=== PATIENT | female | born 1990 | race Caucasian/White ===

== ENCOUNTER → 2016-12-29 | Outpatient (CLI) | payer BC ==
--- NOTE | 2016-12-29 10:41 | US ---
EXAMINATION TYPE: US OB <=14 wks transvag DATE OF EXAM: 12/29/2016 10:11 AM COMPARISON: NONE CLINICAL HISTORY: 046.91 1st Trimester spotting. Cramping, 1 episode of spotting EXAM PERFORMED: Transvaginal (TV) and Transabdominal (TA) EXAM MEASUREMENTS: GESTATIONAL AGE / DATING Physician Established: not established Dates by LMP: (8 weeks/4 days) EDC: 08/06/17 Dates by First Scan: no prior exam Dates by Current Scan for: ( 5 weeks/5 days) (gestational sac) MATERNAL ANATOMY Uterus: 9.8 x 5.7 x 5.2cm Right Ovary: 2.9 x 2.1 x 1.7cm Left Ovary: 3.4 x 2.8 x 3.1cm Post CDS / Adnexa: Small amount of free fluid adjacent to right ovary Presence of free fluid: yes Presence of subchorionic bleed: yes, adjacent to gestational sac = 1.4cm GESTATION / SURVEY MSD: 1.1cm (5 weeks/5 days) Yolk Sac (normal less than 6mm): 0.2cm IUP: no evidence of pole at this time Date of LMP: 10/30/16 Beta HcG (if available): unavailable TECHNOLOGIST IMPRESSION: Probable gestational sac with yolk sac identified within uterus, no evidenc e of pole at this time. Small subchorionic bleed adjacent to gestational sac. Small amount of f ree fluid adjacent to right ovary IMPRESSION: Probable early intrauterine gestation with associated subchorionic bleed. No yolk sac or pole i s seen this time. Short-term follow-up +/- elevated hCGs would be suggested.
== END | disposition home or self-care (01) ==
LOC: RADUSWWP 09:26
PROVIDERS: ATTEND Obstetrics & Gynecology
DX: O46.91 Antepartum hemorrhage, unspecified, first trimester (principal); Z3A.01 Less than 8 weeks gestation of pregnancy
CPT/HCPCS: 76801; 76817; 84702

== ENCOUNTER → 2016-12-31 | Outpatient (CLI) | payer BC | END | disposition home or self-care (01) | LOC: LABWHC1 09:41 | PROVIDERS: ATTEND Obstetrics & Gynecology | DX: Z34.92 Encounter for supervision of normal pregnancy, unspecified, second trimester (principal); Z3A.00 Weeks of gestation of pregnancy not specified | CPT/HCPCS: 36415; 84702 ==

== ENCOUNTER → 2017-01-12 | Outpatient (CLI) | payer BC ==
--- NOTE | 2017-01-12 08:40 | US ---
EXAMINATION TYPE: US OB <= 14 wk fetus DATE OF EXAM: 01/12/2017 7:32 AM COMPARISON: prior scan in PACS December 29, 2016. CLINICAL HISTORY: F/U to abnormal US Z36. on previous scan only gest sac seen EXAM PERFORMED: Transvaginal (TV) and Transabdominal (TA) pelvic ultrasound. EXAM MEASUREMENTS: GESTATIONAL AGE / DATING Physician Established: not established yet Dates by LMP: uncertain lmp Dates by First Scan: no pole seen on first scan Dates by Current Scan for: viable iup not confirmed at this scan MATERNAL ANATOMY Uterus: 8.9 x 6.3 x 7.5cm retroverted uterus with a 1.7 x 1.2 x 0.9cm subchorionic bleed Right Ovary: 2.8 x 1.8 x 2.0cm Left Ovary: 3.3 x 2.3 x 2.6cm Post CDS / Adnexa: wnl Presence of free fluid: none seen GESTATION / SURVEY CRL: 0.6cm (6 weeks/2 days) MSD: wnl Yolk Sac (normal less than 6mm): 3mm Heart Rate: cardiac activity not seen TECHNOLOGIST IMPRESSION: from prior scan pt states rising betas. 6w2d pole seen but with no c ardiac activity. Small subchorionic bleed. Results called to office and left on machine as office not open yet. Intrauterine gestation is now present as gestational sac, yolk sac, and pole are confirmed. Fet al heart tones cannot be detected despite several attempts. No free fluid is seen in pelvic cul-de-sa c. Superior to gestational sac there is oval fluid collection measuring 1.7 x 0.8 cm felt to reflect small to moderate-sized subchorionic hemorrhage. Both ovaries are identified. No suspicious solid or cystic adnexal mass is seen. IMPRESSION: Intrauterine gestation is confirmed. heart tones are not detected probably due to small size. S mall to moderate-sized subchorionic hemorrhage is noted. Short-term beta-hCG and ultrasound follow-up is advised.
== END | disposition home or self-care (01) ==
LOC: RADUSWWP 07:03
PROVIDERS: ATTEND Obstetrics & Gynecology
DX: O20.8 Other hemorrhage in early pregnancy (principal); Z3A.01 Less than 8 weeks gestation of pregnancy
CPT/HCPCS: 76801; 76817

== ENCOUNTER → 2017-01-19 | Outpatient (CLI) | payer BC ==
--- NOTE | 2017-01-19 11:16 | US ---
EXAMINATION TYPE: US OB <= 14 wk fetus DATE OF EXAM: 01/19/2017 10:32 AM COMPARISON: In pacs CLINICAL HISTORY: Z36 F/U to abn US. 3, para 2 EXAM PERFORMED: Transvaginal (TV) and Transabdominal (TA) EXAM MEASUREMENTS: GESTATIONAL AGE / DATING Physician Established: Not established yet Dates by LMP: (11 weeks/4 days) EDC: 08/06/2017 Dates by First Scan: no pole seen Dates by Current Scan for: (7 weeks/0 days) EDC: 09/07/2017 MATERNAL ANATOMY Uterus: 9.1 x 6.5 x 6.9cm Right Ovary: 2.1 x 1.7 x 1.9cm Left Ovary: 2.9 x 1.7 x 2.6cm Post CDS / Adnexa: wnl Presence of free fluid: no Presence of corpus luteal cyst: not seen at this time Presence of subchorionic bleed: 1.6 x 0.7 x 0.9cm hypoechoic area superior to gestational sac GESTATION / SURVEY CRL: 0.4cm (6 weeks/1 days) MSD: 3.0cm (7 weeks/6 days) Yolk Sac (normal less than 6mm): 2.2mm Heart Rate: No heart tones seen at this time Date of LMP: 10/30/2016 Beta HcG (if available): Not available at this time TECHNOLOGIST IMPRESSION: No heart tones seen at this time, measuring 7 weeks 0 days at this ti me, 1.6cm hypoechoic area superior to gestational sac - probable subchorionic bleed Grayscale, color Doppler, spectral Doppler imaging performed on transabdominal imaging. Endovaginal s yvon performed for better evaluation of the and uterus. No interval growth of the crown- rump length. No heart activity identified. IMPRESSION: Findings suggest demise, correlate, follow-up as indicated
== END | disposition home or self-care (01) ==
LOC: RADUSWWP 10:00
PROVIDERS: ATTEND Obstetrics & Gynecology
DX: Z36 Encounter for antenatal screening of mother (principal); Z3A.01 Less than 8 weeks gestation of pregnancy
CPT/HCPCS: 76801; 76817

== ENCOUNTER 2018-08-10 00:29 | Emergency (ER) | payer BC ==
[2018-08-10 01:38] LABS: Appearance,Urine Clear (Clear); Bacteria,Urine Rare /hpf; Bilirubin,Urine Negative (Negative); Blood,Urine Large (Negative); Color,Urine Yellow; Glucose,Urine (UA) Negative (Negative); Ketones,Urine Negative (Negative); Leukocyte Esterase,Urine Negative (Negative); Mucus,Urine Rare /hpf; Nitrite,Urine Negative (Negative); Protein,Urine Negative (Negative); RBC,Urine 6 /hpf (0-5); Specific Gravity,Urine 1.014 (1.001-1.035); Squamous Epithelial Cell,Urine 1 /hpf (0-4); Urobilinogen,Urine <2.0 mg/dL (<2.0); WBC,Urine 1 /hpf (0-5)
--- NOTE | 2018-08-10 01:45 | US ---
EXAMINATION TYPE: Transabdominal DATE OF EXAM: 02/28/18 COMPARISON: NONE CLINICAL HISTORY: Pain. Bleeding EXAM PERFORMED: Transabdominal (TA) EXAM MEASUREMENTS: GESTATIONAL AGE / DATING Physician Established: (10 weeks/1 days) EDC: 03/07/2019 Dates by LMP: (10 weeks/1 days) EDC: 03/07/2019 Dates by First Scan: No previous this is first scan Dates by Current Scan for: (9 weeks/3 days) EDC: 03/13/2019 MATERNAL ANATOMY Uterus: 10.2 x 9.5 x 10.1 Right Ovary: 3.3 x 2.2 x 2.4 cm Left Ovary: 2.4 x 1.7 x 2.4 cm Post CDS / Adnexa: wnl Presence of free fluid: no Presence of corpus luteal cyst: no Presence of subchorionic bleed: no GESTATION / SURVEY CRL: 2.5 cm (9 weeks/3 days) Yolk Sac (normal less than 6mm): 4mm Heart Rate: 150 bpm Rhythm: Normal IUP: Viable IUP Viable IUP 9w33 MICHELLE 03/13/2019 HR 150 BPM IMPRESSION: Ultrasound gestational age is 19 weeks 3 days. No complicating process seen.
--- NOTE | 2018-08-10 02:18 | ED ---
Female Urogenital HPI - General Chief complaint: Vaginal Bleeding Stated complaint: Vaginal Bleeding, 10wks pgt Time Seen by Provider: 08/10/18 00:37 Source: patient, RN notes reviewed, old records reviewed Mode of arrival: ambulatory Limitations: no limitations - History of Present Illness Initial comments: Patient is a female currently 10 weeks presents emergency Department with onset of vaginal bleeding today. Patient reports that it occurred when she walked into work today. She reports she's been having some heavy bleeding with some mild clots. Patient states that she has no significant abdominal pain or cramping. She does report she feels a pressure. Patient denies any fever chills, chest pain shortness of breath. Her [employer] is Dr. Stevenson. - Related Data Home Medications Medication Instructions Recorded Confirmed FLUoxetine HCL [PROzac] 40 mg PO QAM 11/09/17 11/09/17 Norgestimate-Ethinyl Estradiol 1 each PO DAILY 11/09/17 11/09/17 [Ortho Tri-Cyclen 28 Tablet] Previous Rx's Medication Instructions Recorded Ibuprofen [Motrin] 600 mg PO Q6HR PRN #30 tab 11/10/17 metroNIDAZOLE [Flagyl] 500 mg PO BID #14 tab 11/10/17 Allergies Allergy/AdvReac Type Severity Reaction Status Date / Time No Known Allergies Allergy Verified 08/10/18 00:35 Review of Systems ROS Statement: Those systems with pertinent positive or pertinent negative responses have been documented in the HPI. ROS Other: All systems not noted in ROS Statement are negative. Past Medical History Additional Past Medical History / Comment(s): IBS History of Any Multi-Drug Resistant Organisms: None Reported Past Surgical History: Section, Cholecystectomy Past Anesthesia/Blood Transfusion Reactions: No Reported Reaction Past Psychological History: Depression Smoking Status: Current every day smoker Past Alcohol Use History: None Reported Past Drug Use History: None Reported - Past Family History Mother Family Medical History: No Reported History General Exam - General Exam Comments Initial Comments: Is a pleasant 27-year-old female. Alert and oriented. No acute distress. Limitations: no limitations Head exam: Present: atraumatic, normocephalic, normal inspection Eye exam: Present: normal appearance, PERRL, EOMI. Absent: scleral icterus, conjunctival injection, periorbital swelling ENT exam: Present: normal exam, mucous membranes moist Neck exam: Present: normal inspection. Absent: tenderness, meningismus, lymphadenopathy Respiratory exam: Present: normal lung sounds bilaterally. Absent: respiratory distress, wheezes, rales, rhonchi, stridor Cardiovascular Exam: Present: regular rate, normal rhythm, normal heart sounds. Absent: systolic murmur, diastolic murmur, rubs, gallop, clicks GI/Abdominal exam: Present: soft, normal bowel sounds. Absent: distended, tenderness, guarding, rebound, rigid External exam: Present: normal external exam Speculum exam: Present: vaginal bleeding (She has evidence of vaginal bleeding with some clots noted. Cervix does not appear significant only dilated at this time.). Absent: normal speculum exam By manual exam: Absent: normal by manual exam Extremities exam: Present: normal inspection, full ROM, normal capillary refill. Absent: tenderness, pedal edema, joint swelling, calf tenderness Back exam: Present: normal inspection, full ROM Neurological exam: Present: alert, oriented X3, CN II-XII intact Psychiatric exam: Present: normal affect, normal mood Skin exam: Present: warm, dry, intact, normal color. Absent: rash Course Vital Signs 08/10/18 00:32 Temperature 97.9 F Pulse Rate 84 Respiratory 18 Rate Blood Pressure 145/84 O2 Sat by Pulse 100 Oximetry Medical Decision Making - Medical Decision Making This is a 19-year-old female presents emergency Department stay with chief complaint of vaginal bleeding sudden onset. Currently 10 weeks . female. [employer] is Dr. Stevenson. HCG levels 85,000. Rh+ blood type. Ultrasound shows viable IUP measuring 9 weeks and 3 days. Heart rate was 1 50 bpm. At this time Patient does have quite a few clots and moderate vaginal bleeding. Concern for possibility of an early miscarriage at this time. I did discuss that we would need to have her follow-up promptly with [employer]. I discussed the case with Dr. Patel who is on-call for Dr. Stevenson. She recommends following up with Dr. Stevenson within the next 1-2 days for likely repeat ultrasound. No need to repeat hCG due to a viable IUP. Patient understands the treatment plan. Discussed bed rest and no heavy lifting discussed return parameters. - Lab Data Lab Results 08/10/18 08/10/18 08/10/18 Range/Units 00:50 00:50 01:08 HCG, Quant 25838.9 mIU/mL Urine Color Urine Appearance (Clear) Urine pH (5.0-8.0) Ur Specific [place] (1.001-1.035) Urine Protein (Negative) Urine Glucose (UA) (Negative) Urine Ketones (Negative) Urine Blood (Negative) Urine Nitrite (Negative) Urine Bilirubin (Negative) Urine Urobilinogen (<2.0) mg/dL Ur Leukocyte Esterase (Negative) Urine RBC (0-5) /hpf Urine WBC (0-5) /hpf Ur Squamous Epith Cells (0-4) /hpf Urine Bacteria (None) /hpf Urine Mucus (None) /hpf Trichomonas Ag (Rapid) Negative (Negative) Blood Type A Positive Blood Type Recheck No 08/10/18 Range/Units 01:08 HCG, Quant mIU/mL Urine Color Yellow Urine Appearance Clear (Clear) Urine pH 6.0 (5.0-8.0) Ur Specific [place] 1.014 (1.001-1.035) Urine Protein Negative (Negative) Urine Glucose (UA) Negative (Negative) Urine Ketones Negative (Negative) Urine Blood Large H (Negative) Urine Nitrite Negative (Negative) Urine Bilirubin Negative (Negative) Urine Urobilinogen <2.0 (<2.0) mg/dL Ur Leukocyte Esterase Negative (Negative) Urine RBC 6 H (0-5) /hpf Urine WBC 1 (0-5) /hpf Ur Squamous Epith Cells 1 (0-4) /hpf Urine Bacteria Rare H (None) /hpf Urine Mucus Rare H (None) /hpf Trichomonas Ag (Rapid) (Negative) Blood Type Blood Type Recheck Disposition Clinical Impression: Threatened miscarriage in early Disposition: HOME SELF-CARE Condition: Good Instructions: Threatened Miscarriage (ED) Additional Instructions: Patient has follow-up with Dr. Stevenson within the next 1-2 days. Call the office tomorrow morning to schedule appointment. Return to the emergency department if any alarming signs or symptoms occur. Patient needs to have bedrest, no heavy lifting. Is patient prescribed a controlled substance at d/c from ED?: No Referrals: Kaushik Mayorga MD [Primary Care Provider] - 1-2 days Ephraim Munroe DO [Doctor of Osteopathic Medicine] - 1-2 days Time of Disposition: 02:56
[2018-08-10 02:54] VITALS: BP 120/65; PULSE 71; RESP 16; TEMP 98
[2018-08-11 14:00] LABS: N. gonorrhoeae,PCR Negative (Neg,Equiv); Neisseria Source Vagina
[2018-08-12 14:45] LABS: C. trachomatis,PCR Negative (Neg,Equiv); Chlamydia trachomatis Source Vagina
== END 2018-08-10 03:02 | disposition home or self-care (01) ==
LOC: EC 00:29
DX: O20.0 Threatened abortion (principal); O99.341 Other mental disorders complicating pregnancy, first trimester; F32.9 Major depressive disorder, single episode, unspecified; O99.331 Smoking (tobacco) complicating pregnancy, first trimester; F17.200 Nicotine dependence, unspecified, uncomplicated; Z3A.10 10 weeks gestation of pregnancy; Z79.3 Long term (current) use of hormonal contraceptives; Z79.899 Other long term (current) drug therapy
CPT/HCPCS: 36415; 76801; 81001; 84702; 86900; 86901; 87070; 87205; 87491; 87591; 87808; 99284

== ENCOUNTER 2019-01-15 19:26 | Outpatient (CLI) | payer BC ==
[2019-01-15] MEDS ORDERED: LACTATED RINGERS 1,000 ML IV ONE (20:15)
[2019-01-15 20:24] VITALS: BP 126/65; PULSE 97; RESP 16; TEMP 96.8
[2019-01-15 20:30] LABS: Appearance,Urine Clear (Clear); Bilirubin,Urine Negative (Negative); Blood,Urine Negative (Negative); Color,Urine Yellow; Glucose,Urine (UA) Negative (Negative); Ketones,Urine Negative (Negative); Leukocyte Esterase,Urine Negative (Negative); Nitrite,Urine Negative (Negative); PH, Urine 6.5 (5.0-8.0); Protein,Urine Negative (Negative); Specific Gravity,Urine 1.013 (1.001-1.035); Urobilinogen,Urine <2.0 mg/dL (<2.0)
--- NOTE | 2019-01-21 12:35 | P.MSEPDOC ---
Presenting Problems - Arrival Data Date of Arrival on Unit: 01/15/19 Time of Arrival on Unit: 19:26 Mode of Transport: Ambulatory - Complaint OB-Reason for Admission/Chief Complaint: Possible Onset of Labor Medical History - Information : 4 Para: 2 Term: 2 : 0 Abortions: Spontaneous or Elective: 1 Number of Living Children: 2 - Gestational Age Gestational Age by MICHELLE (wks/days): 32 Weeks and 5 Days - History Complications: GDM, Smoker Review of Systems - Review of Systems Constitutional: No problems Breast: No problems ENT: No problems Cardiovascular: No problems Respiratory: No problems Gastrointestinal: No problems Genitourinary: No problems Musculoskeletal: No problems Neurological: No problems Skin: No problems Vital Signs - Temperature Temperature: 96.8 F Temperature Source: Temporal Artery Scan - Pulse Right Brachial Pulse Rate: 97 Pulse Assessment Method: Automatic Cuff - Respirations Respiratory Rate: 16 Oxygen Delivery Method: Room Air O2 Sat by Pulse Oximetry: 100 - Blood Pressure Right Arm Blood Pressure: 126/65 Blood Pressure Mean: 85 Blood Pressure Source: Automatic Cuff Medical Screen Scoring (Pre) - Cervical Exam Dilation: Exam Deferred Effacement: Exam Deferred Membranes: Intact - Uterine Contractions Frequency: > 5 minutes apart = 1 Duration: N/A Intensity: N/A - Maternal Vital Signs Maternal Temperature: N/A Maternal Blood Pressure: N/A Signs of Preeclampsia: N/A Maternal Respirations: N/A - Pain Assessment Pain Location and Character: Lower, Back, Abdomen Pain Scale Used: Numeric (1 - 10) Pain Intensity: 5 Pain Description: *Acute, Cramping Pain Frequency: Intermittent Pain Duration Units: Minutes Pain Behavior: Vocalization Pain Aggravating Factors: Contractions - Maternal Trauma Maternal Trauma: N/A - Assessment Baseline FHR: 135 Heart Rate - NICHD Category: Category I (Normal) = 0 NST: Reactive Position: N/A Station: N/A - Total Score Total Score (Pre): 1 - Level of Risk Level of Risk: Low (0-5) Physician Notification (Pre) - Physician Notified Physician Notified Date: 01/15/19 Physician Notified Time: 20:48 Physician/Practitioner Notifed:: Dr. Munroe Spoke With: Dr. Munroe New Order Received: Yes - Notification Comment Comment: Dr. Munroe called and given report on pt UA results in TR. Orders recieved to. collect FFN and perform vag exam. If closed pt may be d/c to home. Disposition - Disposition OB Disposition: Discharge to home Discharge Date: 01/15/19 Discharge Time: 21:15 I agree with the RN Medical Screening Exam: Yes Risk & Benefit of care provided described in d/c instruction: Yes Diagnosis: FALSE LABOR BEFORE 37 COMPLETED WEEKS OF GEST, THIRD TRI
== END 2019-01-15 21:15 | disposition home or self-care (01) ==
LOC: FBPOP 19:26
PROVIDERS: ATTEND Obstetrics & Gynecology
DX: O47.03 False labor before 37 completed weeks of gestation, third trimester (principal); Z3A.32 32 weeks gestation of pregnancy
CPT/HCPCS: 59025; 81003; 96360; 96365; 99214

== ENCOUNTER 2020-02-14 06:03 | Inpatient (IN) | payer OTHER, BC ==
[2020-02-13 12:17] VITALS: BMI 37.2
--- NOTE | 2020-02-13 15:59 | P.HPOB ---
History of Present Illness H&P Date: 02/13/20 Chief Complaint: Intrauterine term: Prior section: GDM A2 Belkis is a 29-year-old G3 5 P3 with 3 prior sections that is now 37 weeks gestation. She has been seen and coordinating care with maternal- medicine for her gestational diabetes for which she is taking insulin. However, last week she had an ultrasound that showed decreased flow in the placenta and she has been recommended to have her delivery at 37 weeks due to same. NST done on Tuesday was reactive. Risks/benefits/alternatives to this procedure were reviewed with the patient in detail all questions were answered for her prior to proceeding to the operative room. Risks did include but were not limited to bleeding and infection, damage to bladder or bowel, vascular injuries, nerve injuries. On physical exam this is an obese female whose HEENT is otherwise unremarkable. Heart regular lungs clear, abdomen soft gravid and gravid uterus is noted. Extremities are without pain. We'll do blood glucose level at arrival with CBC. At about X prophylactically also provided. Past Medical History Past Medical History: Diabetes Mellitus Additional Past Medical History / Comment(s): IBS History of Any Multi-Drug Resistant Organisms: None Reported Past Surgical History: Section, Cholecystectomy Additional Past Surgical History / Comment(s): D&C Past Anesthesia/Blood Transfusion Reactions: No Reported Reaction Additional Past Anesthesia/Blood Transfusion Reaction / Comment(s): rash from anesthesia with gall bladder surgery Smoking Status: Former smoker - Past Family History Mother Family Medical History: Diabetes Mellitus, Hypertension Medications and Allergies Home Medications Medication Instructions Recorded Confirmed Type INSULIN LISPRO (HumaLOG) [HumaLOG] 5 units SQ AC-SUPPER 02/12/19 02/13/20 History Insulin NPH Human Isophane 8 unit SQ HS 02/12/19 02/13/20 History [humuLIN N] Pedi Multivit No.25/Folic Acid 2 tab PO DAILY 02/12/19 02/13/20 History [Flintstones Multivit Chew Tab] Allergies Allergy/AdvReac Type Severity Reaction Status Date / Time No Known Allergies Allergy Verified 02/13/20 12:08 Exam Osteopathic Statement: *. No significant issues noted on an osteopathic structural exam other than those noted in the History and Physical/Consult. Intake and Output 02/13/20 02/13/20 02/13/20 06:59 14:59 22:59 Other: Weight 89.358 kg - OBG Physical Exam Breast: both: normal (no masses) Abdomen: bowel sounds normal, no diffuse tenderness, no bruit present, no guarding noted, no hepatomegaly, no splenomegaly, no mass Vulva: both: normal Vagina: normal moisture, no discharge Cervix: no lesion, no discharge Uterus: normal size, normal contour Adnexa: both: normal Anus/Rectum: normal perianal skin, no rectal mass, no hemorrhoids, heme negative
[2020-02-14] MEDS ORDERED: CITRIC ACID-SODIUM CITRATE 15 ML CUP PO ONE (06:24)
[2020-02-14] MEDS: LACTATED RINGERS 1,000 ML IV SCH ×2 (06:37→12:08)
[2020-02-14 06:45] LABS: Anisocytosis Slight; Basophils % (A) 0 %; Eosinophils # (A) 0.1 k/uL (0-0.7); Eosinophils % (A) 1 %; HCT 30.4 % (34.0-46.0); HGB 9.8 gm/dL (11.4-16.0); Hypochromasia Moderate; Lymphocytes # (A) 1.8 k/uL (1.0-4.8); Lymphocytes % (A) 18 %; MCH 25.6 pg (25.0-35.0); MCHC 32.2 g/dL (31.0-37.0); MCV 79.7 fL (80.0-100.0); Mean Platelet Volume 9.3; Microcytosis Slight; Monocytes # (A) 0.7 k/uL (0-1.0); Monocytes % (A) 7 %; Neutrophils # (A) 7.1 k/uL (1.3-7.7); Neutrophils % (A) 70 %; Platelet Count 227 k/uL (150-450); Poikilocytosis Moderate; RBC 3.81 m/uL (3.80-5.40); RDW 16.8 % (11.5-15.5); WBC 10.1 k/uL (3.8-10.6)
[2020-02-14] MEDS ORDERED: ceFAZolin 3 GM in SODIUM CHLORIDE 0.9% 100 ML IVPB ONE (07:00)
[2020-02-14 07:38] LABS: Glucose,Whole Blood 94 mg/dL (75-99)
[2020-02-14] MEDS ORDERED: NALBUPHINE 10 MG/ML (1 ML AMP) IV PRN (08:28)
[2020-02-14] MEDS ORDERED: NALOXONE 0.4 MG/ML 1 ML VIAL IV PRN ×2 (08:28→08:52)
[2020-02-14] MEDS ORDERED: ONDANSETRON 4 MG/2 ML VIAL IVP PRN ×2 (08:28→08:52)
[2020-02-14] MEDS ORDERED: OXYTOCIN 10 UNIT/ML 1 ML VIAL ONE (08:44)
[2020-02-14] MEDS ORDERED: PHENYLEPHRINE-0.9% NACL SYG 1 MG/10 ML SYRINGE ONE (08:44)
[2020-02-14] MEDS ORDERED: MORPHINE SULFATE (PF) 0.3 MG/0.3 ML SYR ONE (08:44)
[2020-02-14] MEDS ORDERED: ONDANSETRON 4 MG/2 ML VIAL ONE (08:44)
[2020-02-14] MEDS ORDERED: KETOROLAC 30 MG/ML 1 ML VIAL ONE (08:44)
[2020-02-14] MEDS ORDERED: IBUPROFEN 600 MG TAB PO PRN (08:52)
[2020-02-14] MEDS ORDERED: ACETAMINOPHEN TAB 325 MG TAB PO PRN (08:52)
[2020-02-14] MEDS ORDERED: diphenhydrAMINE 50 MG CAP PO PRN (08:52)
[2020-02-14] MEDS ORDERED: diphenhydrAMINE 25 MG CAP PO PRN (08:52)
[2020-02-14] MEDS ORDERED: diphenhydrAMINE 50 MG/ML 1 ML VIAL IVP PRN ×2 (08:52)
[2020-02-14] MEDS ORDERED: HYDROcodone/APAP 7.5-325MG 1 EACH TAB PO PRN (08:52)
[2020-02-14] MEDS ORDERED: ZOLPIDEM 5 MG TAB PO PRN (08:52)
[2020-02-14] MEDS ORDERED: METOCLOPRAMIDE 5 MG/ML 2 ML VIAL IVP PRN (08:52)
--- NOTE | 2020-02-14 08:59 | P.OP ---
Date of Procedure: 02/14/20 Preoperative Diagnosis: Intrauterine term: Previous sections Postoperative Diagnosis: Same Procedure(s) Performed: Repeat low transverse section Anesthesia: spinal Surgeon: Ephraim Munroe Haunted History Tour Guide #1: Leyda Garibay Estimated Blood Loss (ml): 700 IV fluids (ml): 700 Urine output (ml): 150 Pathology: other (placenta) Condition: stable Disposition: floor Operative Findings: Female 's of 9 and 9 at one and 5 minutes respectively weight was 6 lbs. 5 oz. Description of Procedure: Center was taken to the operating suite where a spinal anesthetic was found be adequate. She was prepped and draped in the normal sterile fashion and placed in the dorsal supine position with leftward tilt. Initially a Pfannenstiel skin incision was made and this incision was then carried through to underlying layer of the fashion with the second knife. Fascia was then nicked in the midline and this opening was extended laterally with Mendoza scissors. Superior and inferior aspect of this incision were then developed with Metzenbaum scissors and blunt dissection. During this process peritoneal entry was noted. Perineum was then extended superiorly and inferiorly with good visualization of both bowel bladder. Bladder blade was then placed bladder flap was identified was low and significant a scarred into place therefore was left in situ and incision was made well above this margin. This incision was then fully developed hemostat and then bluntly extended. Head was then atraumatically delivered and mouth nares were bulb suctioned. Nuchal cord 1 easily reduced posterior and anterior shoulder was then delivered gentle downward upper traction. Once baby was fully delivered umbilical cord was clamped cut usual fashion an nursery personnel was present to assume care. Placenta was then delivered intact and Pitocin was added to the IV. Uterus was then exteriorized cleared of clots and debris and closed in 2 layers with 0 Vicryl suture. Small area of bleeding was noted centrally and one interrupted 0 Vicryl suture was used to obtain excellent hemostasis. Bladder is noted to be pulled up close to the incision there is no evidence of perforation and urine in the tubing is clear. It is not in the incision but it is within a centimeter of the incision line at this time due to the scarring of her bladder. It is also noted that the uterine wall it was very thin at the level of the bladder due to 3 prior sections. Once hemostasis was obtained blood and debris was suctioned from the posterior cul-de-sac and uterus was reinserted into the abdomen. Peritoneal layer was identified and delineated with hemostats and closed with 0 Vicryl suture. Fascial layer was then closed with 0 Vicryl suture. One layer of 3-0 Vicryl placed in deep subcuticular tissues reapproximate skin and close space after some undermining the skin tissue was done to break up some scar tissue. Initially attempt at subcuticular closure was done but due to the significant scarring the Giuseppe needle was bending and there was a small vessel that began to bleed in the left corner of the incision which required interrupted 3-0 Vicryl for hemostasis. Once this was determined incision was then closed with denny. Sponge, lap, needle counts were all correct 2. Patient was then taken to the recovery room in stable and satisfactory condition.
[2020-02-14] MEDS ORDERED: LACTATED RINGERS 1,000 ML IV SCH (09:00)
[2020-02-14] MEDS: KETOROLAC 30 MG/ML 1 ML VIAL IVP PRN (18:05)
[2020-02-14] MEDS: SENNOSIDES-DOCUSATE SODIUM 1 EACH TAB PO SCH (21:09)
[2020-02-15] MEDS: KETOROLAC 30 MG/ML 1 ML VIAL IVP PRN ×2 (00:06→07:48)
[2020-02-15 08:33] LABS: Anisocytosis Slight; Basophils % (A) 0 %; Eosinophils # (A) 0.1 k/uL (0-0.7); Eosinophils % (A) 1 %; HCT 27.3 % (34.0-46.0); HGB 8.7 gm/dL (11.4-16.0); Hypochromasia Moderate; Lymphocytes # (A) 1.3 k/uL (1.0-4.8); Lymphocytes % (A) 14 %; MCH 25.8 pg (25.0-35.0); MCHC 31.8 g/dL (31.0-37.0); MCV 81.1 fL (80.0-100.0); Mean Platelet Volume 9.1; Monocytes # (A) 0.8 k/uL (0-1.0); Monocytes % (A) 8 %; Neutrophils # (A) 6.9 k/uL (1.3-7.7); Neutrophils % (A) 75 %; Platelet Count 158 k/uL (150-450); Poikilocytosis Slight; RBC 3.37 m/uL (3.80-5.40); RDW 17.2 % (11.5-15.5); WBC 9.3 k/uL (3.8-10.6)
[2020-02-15] MEDS: SENNOSIDES-DOCUSATE SODIUM 1 EACH TAB PO SCH (08:47)
[2020-02-15 10:01] VITALS: BP 124/72; PULSE 91; RESP 16; TEMP 98
--- NOTE | 2020-02-15 11:59 | P.DS ---
Providers Date of admission: 02/14/20 06:03 Expected date of discharge: 02/15/20 Attending physician: Ephraim Munroe Primary care physician: Stated None Hospital Course: Meek doing very well postop day 1. She is requesting discharge home due to the covid 19 outbreak. Her incision is healing well and she is ambulating, voiding and tolerating a diet. Her vital signs are stable and afebrile and therefore we'll plan to discharge her home today with prescriptions for Alva and Motrin. All the questions were answered for her at this time. On physical exam heart regular, lungs clear, extremities without pain. Abdomen is soft and her incision is clean dry and intact. Bowel sounds are noted. Assessment postop day 1. Plan discharged home follow me on Tuesday for staple removal all the questions were answered for her at this time. She is stable for discharge this time. Patient Condition at Discharge: Good Plan - Discharge Summary Discharge Rx Participant: Yes New Discharge Prescriptions: New Ibuprofen [Motrin] 600 mg PO Q6HR PRN #30 tab PRN Reason: Pain HYDROcodone/APAP 5-325MG [Alva 5-325] 1 tab PO Q4HR PRN #30 tab PRN Reason: Pain No Action INSULIN LISPRO (HumaLOG) [HumaLOG] 5 units SQ AC-SUPPER Insulin NPH Human Isophane [humuLIN N] 8 unit SQ HS Pedi Multivit No.25/Folic Acid [Flintstones Multivit Chew Tab] 2 tab PO DAILY Discharge Medication List INSULIN LISPRO (HumaLOG) [HumaLOG] 5 units SQ AC-SUPPER 02/12/19 [History] Insulin NPH Human Isophane [humuLIN N] 8 unit SQ HS 02/12/19 [History] Pedi Multivit No.25/Folic Acid [Flintstones Multivit Chew Tab] 2 tab PO DAILY 02/12/19 [History] HYDROcodone/APAP 5-325MG [Alva 5-325] 1 tab PO Q4HR PRN #30 tab 02/15/20 [Rx] Ibuprofen [Motrin] 600 mg PO Q6HR PRN #30 tab 02/15/20 [Rx] Follow up Appointment(s)/Referral(s): Ephraim Munroe DO [Doctor of Osteopathic Medicine] - 02/19/20 Activity/Diet/Wound Care/Special Instructions: No heavy lifting, limit stairs and driving, and pelvic rest. If any high temperatures, heavy bleeding, or severe pain call my office. Please see me on Tuesday for staple removal. Discharge Disposition: HOME SELF-CARE
--- NOTE | 2020-02-15 13:20 | P.PN ---
Progress Note - Text 02/14 650am 29-year-old status post with spinal anesthetic and Duramorph. Patient has a VAS of 2 with minimal complaints of pruritus doing very well
== END 2020-02-15 13:30 | disposition home or self-care (01) | DRG 788 ==
LOC: 4FBP 06:03
PROVIDERS: ADMIT Obstetrics & Gynecology; ATTEND Obstetrics & Gynecology
PROC: 10D00Z1 Extraction of Products of Conception, Low, Open Approach (ICD-10-PCS; principal; 2020-02-14 08:00)
DX: O24.424 Gestational diabetes mellitus in childbirth, insulin controlled (principal); O34.211 Maternal care for low transverse scar from previous cesarean delivery; E66.9 Obesity, unspecified; Z68.37 Body mass index [BMI] 37.0-37.9, adult; O99.214 Obesity complicating childbirth; Z37.0 Single live birth; Z3A.37 37 weeks gestation of pregnancy; Z82.49 Family history of ischemic heart disease and other diseases of the circulatory system; Z83.3 Family history of diabetes mellitus; Z87.891 Personal history of nicotine dependence; Z79.4 Long term (current) use of insulin; Z90.49 Acquired absence of other specified parts of digestive tract; O43.893 Other placental disorders, third trimester
CPT/HCPCS: 85025; 86850; 86900; 86901; 88307

== ENCOUNTER 2024-02-21 08:37 | Outpatient (CLI) | payer BC, OTHER ==
[2024-02-21 09:59] VITALS: BP 122/60; PULSE 91; RESP 18; TEMP 97.2
--- NOTE | 2024-02-24 11:08 | P.MSEPDOC ---
Presenting Problems - Arrival Data Date of Arrival on Unit: 02/21/24 Time of Arrival on Unit: 08:47 Mode of Transport: Ambulatory - Complaint OB-Reason for Admission/Chief Complaint: NST Comment: written order for NST and D/C with reactive results. Medical History - Information : 7 Para: 5 Term: 5 : 0 Abortions: Spontaneous or Elective: 1 Number of Living Children: 5 - Gestational Age Gestational Age by MICHELLE (wks/days): 33 Weeks and 5 Days Review of Systems - Review of Systems Constitutional: No problems Breast: No problems ENT: No problems Cardiovascular: No problems Respiratory: No problems Gastrointestinal: No problems Genitourinary: No problems Musculoskeletal: No problems Neurological: No problems Skin: No problems Vital Signs - Temperature Temperature: 97.2 F Temperature Source: Temporal Artery Scan - Pulse Pulse Oximetery Pulse Rate: 91 Pulse Assessment Method: Pulse Oximetry - Respirations Respiratory Rate: 18 Oxygen Delivery Method: Room Air O2 Sat by Pulse Oximetry: 99 - Blood Pressure Left Arm Blood Pressure: 122/60 Blood Pressure Mean: 80 Blood Pressure Source: Automatic Cuff Medical Screen Scoring - Assessment - Baby A Baseline FHR: 135 Heart Rate - NICHD Category: Category I (Normal) NST: Reactive Physician Notification - Notification Comment Comment: Pt reactive NST and discharge home per written order. Maternal Triage Index - Maternal Triage Index Presenting for scheduled procedure w/no complaint: No - Stat/Priority 1 Stat Priority 1: No - Urgent/Priority 2 Urgent Priority 2: No - Prompt/Priority 3 Prompt Priority 3: No - Non-Urgent/Priority 4 Non-Urgent Priority 4: No - Scheduled/Requesting Priority 5 Scheduled/Requesting Priority 5: Yes Criteria Met for Priority 5: written order for NST and D/C with reactive results. Disposition - Disposition OB Disposition: Discharge to home Discharge Date: 02/21/24 Discharge Time: 09:08 I agree with the RN Medical Screening Exam: Yes Physician's MSE Comment: I have neither seen nor examined the patient. Case reviewed; plan agreed upon as documented in EMR&OBIX.: Yes Diagnosis: RELATED CONDITIONS, UNSPECIFIED, THIRD TRIMESTER
== END 2024-02-21 09:10 | disposition home or self-care (01) ==
LOC: FBPOP 08:37
PROVIDERS: ATTEND Obstetrics & Gynecology
DX: O26.893 Other specified pregnancy related conditions, third trimester (principal); Z3A.33 33 weeks gestation of pregnancy; Z87.891 Personal history of nicotine dependence
CPT/HCPCS: 59025; 99213

== ENCOUNTER → 2024-02-24 | Outpatient (CLI) | payer BC, OTHER ==
[2024-02-24 12:53] VITALS: BP 118/71; PULSE 107; RESP 18; TEMP 96.8
--- NOTE | 2024-03-28 19:35 | P.MSEPDOC ---
Presenting Problems - Arrival Data Date of Arrival on Unit: 02/24/24 Time of Arrival on Unit: 11:25 Mode of Transport: Ambulatory - Complaint OB-Reason for Admission/Chief Complaint: NST Comment: NST for GDM Medical History - Information : 7 Para: 5 Term: 5 : 0 Abortions: Spontaneous or Elective: 1 Number of Living Children: 5 - Gestational Age Gestational Age by MICHELLE (wks/days): 34 Weeks and 1 Days Review of Systems - Review of Systems Constitutional: No problems Breast: No problems ENT: No problems Cardiovascular: No problems Respiratory: No problems Gastrointestinal: No problems Genitourinary: No problems Musculoskeletal: No problems Neurological: No problems Skin: No problems Vital Signs - Temperature Temperature: 96.8 F Temperature Source: Temporal Artery Scan - Pulse Right Pulse Rate: 107 Pulse Assessment Method: Pulse Oximetry - Respirations Respiratory Rate: 18 Oxygen Delivery Method: Room Air O2 Sat by Pulse Oximetry: 99 - Blood Pressure Left Arm Blood Pressure: 118/71 Blood Pressure Mean: 86 Blood Pressure Source: Automatic Cuff Medical Screen Scoring - Assessment - Baby A Baseline FHR: 135 Heart Rate - NICHD Category: Category I (Normal) NST: Reactive Physician Notification - Notification Comment Comment: NST Sciprt states okay to D/C is reactive Maternal Triage Index - Maternal Triage Index Presenting for scheduled procedure w/no complaint: Yes - Scheduled/Requesting Priority 5 Scheduled/Requesting Priority 5: No Disposition - Disposition OB Disposition: Discharge to home Discharge Date: 02/24/24 Discharge Time: 12:30 I agree with the RN Medical Screening Exam: Yes Case reviewed; plan agreed upon as documented in EMR&OBIX.: Yes Diagnosis: testing
== END ==
LOC: FBPOP 11:25
PROVIDERS: ATTEND Obstetrics & Gynecology
DX: Z36.9 Encounter for antenatal screening, unspecified (principal); O24.419 Gestational diabetes mellitus in pregnancy, unspecified control; Z3A.34 34 weeks gestation of pregnancy; Z87.891 Personal history of nicotine dependence
CPT/HCPCS: 59025; 99213

== ENCOUNTER 2024-02-27 10:07 | Outpatient (CLI) | payer BC, OTHER | END 2024-02-27 10:45 | disposition home or self-care (01) | LOC: FBPOP 10:07 | PROVIDERS: ATTEND Obstetrics & Gynecology | DX: O24.414 Gestational diabetes mellitus in pregnancy, insulin controlled (principal); Z87.891 Personal history of nicotine dependence; Z3A.00 Weeks of gestation of pregnancy not specified | CPT/HCPCS: 59025 ==

== ENCOUNTER 2024-03-28 05:47 | Inpatient (IN) | payer BC, OTHER ==
[2024-03-28] MEDS ORDERED: OXYTOCIN 10 UNIT/ML 1 ML VIAL IM PRN (06:52)
[2024-03-28] MEDS ORDERED: miSOPROStoL 200 MCG TAB PO PRN (06:52)
[2024-03-28] MEDS ORDERED: CARBOPROST TROMETHAMINE 250 MCG/ML 1 ML AMP IM PRN (06:52)
[2024-03-28] MEDS ORDERED: TRANEXAMIC 1,000 MG/100ML-NACL 1,000 MG in EMPTY BAG 1 BAG IV PRN (06:52)
[2024-03-28] MEDS ORDERED: METHYLERGONOVINE 0.2 MG/ML 1 ML AMP IM PRN (06:52)
[2024-03-28] MEDS ORDERED: OXYTOCIN 30 UNITS/500 ML NS 30 UNIT in SALINE 1 500ML.BAG IV SCH (07:00)
[2024-03-28] MEDS: LACTATED RINGERS 1,000 ML IV ONE (07:02)
[2024-03-28] MEDS: CITRIC ACID-SODIUM CITRATE 15 ML CUP PO ONE (07:07)
[2024-03-28 07:19] LABS: Glucose,Whole Blood 108 mg/dL (70-110)
[2024-03-28 07:43] LABS: Anisocytosis Slight; Basophils % (A) 0 %; Eosinophils # (A) 0.1 k/uL (0-0.7); Eosinophils % (A) 1 %; HCT 31.2 % (34.0-46.0); HGB 9.7 gm/dL (11.4-16.0); Hypochromasia Marked; Lymphocytes # (A) 1.5 k/uL (1.0-4.8); Lymphocytes % (A) 16 %; MCH 24.7 pg (25.0-35.0); MCHC 31.3 g/dL (31.0-37.0); Mean Platelet Volume 9.2; Microcytosis Slight; Monocytes # (A) 0.7 k/uL (0-1.0); Monocytes % (A) 7 %; Neutrophils # (A) 6.8 k/uL (1.3-7.7); Neutrophils % (A) 72 %; Platelet Count 228 k/uL (150-450); Poikilocytosis Moderate; RBC 3.94 m/uL (3.80-5.40); RDW 17.2 % (11.5-15.5); WBC 9.4 k/uL (3.8-10.6)
[2024-03-28] MEDS ORDERED: MORPHINE SULFATE (PF) 0.3 MG/0.3 ML SYR ONE (07:50)
[2024-03-28] MEDS ORDERED: NALBUPHINE 10 MG/ML (10 ML MDV) ONE (07:50)
[2024-03-28] MEDS ORDERED: KETOROLAC 15 MG/ML 1 ML VIAL ONE (07:50)
[2024-03-28] MEDS ORDERED: ePHEDrine 50 MG/ML 1 ML VIAL ONE (07:50)
[2024-03-28] MEDS ORDERED: OXYTOCIN 30 UNITS/500 ML NS BAG IV ONE (07:50)
[2024-03-28] MEDS ORDERED: ONDANSETRON 4 MG/2 ML VIAL ONE (07:50)
[2024-03-28] MEDS ORDERED: NALOXONE 0.4 MG/ML 1 ML VIAL IV PRN ×2 (08:30→12:29)
[2024-03-28] MEDS ORDERED: diphenhydrAMINE 50 MG/ML 1 ML VIAL IVP PRN ×3 (08:30→12:29)
[2024-03-28] MEDS ORDERED: ONDANSETRON 4 MG/2 ML VIAL IVP PRN ×2 (08:30→12:29)
[2024-03-28] MEDS: LACTATED RINGERS 1,000 ML IV SCH ×2 (09:21→16:32)
--- NOTE | 2024-03-28 12:19 | P.HPOB ---
History of Present Illness H&P Date: 03/28/24 Chief Complaint: SROM, previous 33 year old presents at 38 weeks 6 days with SROM. She is scheduled for repeat c/S with TL tomorrow but will cont with this plan today. Review of Systems All systems: negative Constitutional: Denies chills, Denies fever Eyes: denies blurred vision, denies pain Ears, nose, mouth and throat: Denies headache, Denies sore throat Cardiovascular: Denies chest pain, Denies shortness of breath Respiratory: Denies cough Gastrointestinal: Denies abdominal pain, Denies diarrhea, Denies nausea, Denies vomiting Genitourinary: Denies dysuria, Denies hematuria Musculoskeletal: Denies myalgias Integumentary: Denies pruritus, Denies rash Neurological: Denies numbness, Denies weakness Psychiatric: Denies anxiety, Denies depression Endocrine: Denies fatigue, Denies weight change Past Medical History Past Medical History: Diabetes Mellitus Additional Past Medical History / Comment(s): GESTATIONAL DIABETES. IBS. MISSED AB History of Any Multi-Drug Resistant Organisms: None Reported Past Surgical History: Section, Cholecystectomy Additional Past Surgical History / Comment(s): D&C x 2, x 4 Past Anesthesia/Blood Transfusion Reactions: No Reported Reaction Additional Past Anesthesia/Blood Transfusion Reaction / Comment(s): rash from anesthesia at IV site with gall bladder surgery Past Psychological History: Depression Additional Psychological History / Comment(s): Pt. states none Smoking Status: Never smoker Past Alcohol Use History: None Reported Additional Past Alcohol Use History / Comment(s): QUIT SMOKING 2019, smoked 1ppd x 10yrs. Past Drug Use History: None Reported - Past Family History Mother Family Medical History: Diabetes Mellitus, Hypertension Medications and Allergies Home Medications Medication Instructions Recorded Confirmed Type Pedi Multivit No.25/Folic Acid 2 tab PO DAILY 02/12/19 03/28/24 History [Flintstones Multivit Chew Tab] Insulin Glargine [Lantus Vial] 22 unit SQ HS 02/21/24 03/28/24 History Allergies Allergy/AdvReac Type Severity Reaction Status Date / Time No Known Allergies Allergy Verified 03/27/24 16:05 Exam Osteopathic Statement: *. No significant issues noted on an osteopathic structural exam other than those noted in the History and Physical/Consult. Vital Signs Temp Pulse Resp BP Pulse Ox 03/28/24 10:53 83 16 117/64 98 03/28/24 10:38 86 16 124/70 99 03/28/24 10:23 80 14 116/64 99 03/28/24 10:08 97.1 F L 75 16 118/62 97 03/28/24 09:53 74 16 113/60 97 03/28/24 09:38 82 16 115/55 98 03/28/24 09:30 14 98 03/28/24 09:23 87 16 115/51 98 03/28/24 09:08 86 16 112/53 98 03/28/24 08:53 96.8 F L 83 16 105/57 100 03/28/24 08:30 16 99 03/28/24 07:27 97.6 F 75 16 133/68 99 03/28/24 05:51 97.6 F 75 16 133/68 99 Intake and Output 03/27/24 03/28/24 03/28/24 22:59 06:59 14:59 Output Total 1000 Balance -1000 Output: Urine 100 Output, Quantitative 900 Blood Loss Other: Weight 108.862 kg 108.862 kg Heart: Regular rate and rhythm Lungs: Clear to auscultation bilaterally Abdomen: Soft, nontender Extremities: Negative Homans sign Results Result Diagrams: 03/28/24 07:05 Abnormal Lab Results - Last 24 Hours (Table) 03/28/24 Range/Units 07:05 Hgb 9.7 L (11.4-16.0) gm/dL Hct 31.2 L (34.0-46.0) % MCV 79.0 L (80.0-100.0) fL MCH 24.7 L (25.0-35.0) pg RDW 17.2 H (11.5-15.5) % Assessment and Plan (1) Previous section Current Visit: Yes Status: Acute Code(s): Z98.891 - HISTORY OF UTERINE SCAR FROM PREVIOUS SURGERY SNOMED Code(s): 242589897 (2) 38 weeks gestation of Current Visit: Yes Status: Acute Code(s): Z3A.38 - 38 WEEKS GESTATION OF SNOMED Code(s): 67275886 (3) Spontaneous rupture of membranes Current Visit: Yes Status: Acute Code(s): DHL7118 - SNOMED Code(s): 375490531 Plan: 1. admit to [facility] 2. repeat low transverse
--- NOTE | 2024-03-28 12:23 | P.OP ---
Date of Procedure: 03/28/24 Preoperative Diagnosis: 1. Previous 2. 38 weeks gestation 3. Spontaneous rupture of membranes 4. Family planning Postoperative Diagnosis: Same Procedure(s) Performed: Repeat low transverse with tubal ligation Anesthesia: spinal Surgeon: Monserrat Patel Social Services Coordinator #1: Chuckie Bass Estimated Blood Loss (ml): 900 IV fluids (ml): 1,000 Urine output (ml): 300 Pathology: none sent Condition: stable Disposition: floor Operative Findings: Viable infants, Apgars 9, 9 Description of Procedure: Patient was taken to the operating room where spinal anesthesia was found be adequate. She was prepped and draped in normal sterile fashion in dorsal supine position with a leftward tilt. Pfannenstiel skin incision was made the scalpel and carried through to the underlying layer of fascia with the scalpel. Fascia was incised in midline and carried bilaterally with the Mendoza scissors. The superior aspect of the fascial incision was grasped with Onel clamps elevated and the underlying rectus muscles dissected off with the Mendoza's. Attention was then turned to inferior aspect of same incision which in a similar fashion was grasped tented up and the underlying rectus muscles dissected off with the Mendoza's. The rectus muscles were the midline and the peritoneum was identified tented up and entered sharply with the scalpel. The incision was extended superiorly and inferiorly with good visualization of the bladder. The bladder blade was inserted and the vesicouterine peritoneum was incised the Metzenbaums then carried bilaterally and bladder flap created digitally. A low transverse incision was then made on the uterus with the scalpel. This was carried bilaterally and digital manner. 's head delivered atraumatically, nose and mouth bulb suctioned, cord clamped and cut, infant handed off to waiting nurses. Apgars 9,[9, weight Attending. Placenta delivered manually, intact with three-vessel cord. The uterus is exteriorized and cleared of all clots and debris. The uterine incision was closed with 0 Vicryl in a running locked fashion. Second layer of the same sutures used in imbricating fashion to obtain excellent hemostasis. The right fallopian tube was grasped with a hemostat and a window was made in the mesosalpinx with the Bovie. This fallopian tube was doubly ligated a segment was removed and the pedicles were cauterized with the Bovie. The left fallopian tube was then grasped with a hemostat and a window was made in the mesosalpinx with the Bovie. The fallopian tube was doubly ligated segment was removed and the pedicles were cauterized with the Bovie. The peritoneum was reapproximated using 2-0 Vicryl in a running fashion. The muscles were reapproximated using 2-0 Vicryl in interrupted fashion. The fascia was reapproximated using 0 Vicryl in a running fashion. The subcutaneous tissues closed with 3-0 Vicryl running fashion. The skin was closed denny. Patient tolerated the procedure well, sponge and instrument counts were correct times 2 and she was taken to the recovery room in stable condition.
[2024-03-28] MEDS ORDERED: METOCLOPRAMIDE 5 MG/ML 2 ML VIAL IVP PRN (12:29)
[2024-03-28] MEDS ORDERED: ZOLPIDEM 5 MG TAB PO PRN (12:29)
[2024-03-28] MEDS ORDERED: diphenhydrAMINE 50 MG CAP PO PRN (12:29)
[2024-03-28] MEDS ORDERED: diphenhydrAMINE 25 MG CAP PO PRN (12:29)
[2024-03-28] MEDS ORDERED: SIMETHICONE 80 MG CHEWABLE PO PRN (12:29)
[2024-03-28] MEDS: ACETAMINOPHEN TAB 500 MG TAB PO SCH (16:09)
[2024-03-28] MEDS: IBUPROFEN 600 MG TAB PO SCH (18:45)
[2024-03-28] MEDS: SENNOSIDES-DOCUSATE SODIUM 1 EACH TAB PO SCH (20:45)
[2024-03-29 00:52] VITALS: RESP 16
[2024-03-29 07:36] LABS: Anisocytosis Slight; Basophils % (A) 0 %; Eosinophils # (A) 0.1 k/uL (0-0.7); Eosinophils % (A) 1 %; HCT 25.2 % (34.0-46.0); Hypochromasia Moderate; Lymphocytes # (A) 1.3 k/uL (1.0-4.8); Lymphocytes % (A) 15 %; MCH 24.3 pg (25.0-35.0); MCHC 30.9 g/dL (31.0-37.0); MCV 78.8 fL (80.0-100.0); Mean Platelet Volume 8.6; Microcytosis Slight; Monocytes # (A) 0.6 k/uL (0-1.0); Monocytes % (A) 7 %; Neutrophils # (A) 6.3 k/uL (1.3-7.7); Neutrophils % (A) 75 %; Platelet Count 191 k/uL (150-450); Poikilocytosis Moderate; RDW 17.8 % (11.5-15.5); WBC 8.4 k/uL (3.8-10.6)
[2024-03-29 07:57] LABS: HGB 7.8 gm/dL (11.4-16.0)
--- NOTE | 2024-03-29 08:24 | P.PN ---
Progress Note - Text 03/29/24 638am 33-year-old female status post with spinal Duramorph. Patient seen and evaluated for postop pain control with a VAS of 1 no complaints of nausea vomiting mild pruritus
--- NOTE | 2024-03-30 07:57 | P.DS ---
Providers Date of admission: 03/28/24 06:06 Expected date of discharge: 03/30/24 Attending physician: Monserrat Patel Primary care physician: Stated None - Discharge Diagnosis(es) (1) Previous section Current Visit: Yes Status: Resolved (2) 38 weeks gestation of Current Visit: Yes Status: Resolved (3) Spontaneous rupture of membranes Current Visit: Yes Status: Resolved (4) Status post repeat low transverse section Current Visit: No Status: Acute Hospital Course: Patient presented for repeat low transverse and tubal ligation. She underwent this procedure without complication. Patient will be discharged home day #2 in stable condition to follow-up with me in 2 weeks. Plan - Discharge Summary New Discharge Prescriptions: No Action Pedi Multivit No.25/Folic Acid [Flintstones Multivit Chew Tab] 2 tab PO DAILY Insulin Glargine [Lantus Vial] 22 unit SQ HS Discharge Medication List Pedi Multivit No.25/Folic Acid [Flintstones Multivit Chew Tab] 2 tab PO DAILY 02/12/19 [History] Insulin Glargine [Lantus Vial] 22 unit SQ HS 02/21/24 [History] Follow up Appointment(s)/Referral(s): Monserrat Patel DO [Doctor of Osteopathic Medicine] - 05/09/24 9:45 am (Post Op Appointment 04-11-2024 at 9:45am) Discharge Disposition: HOME SELF-CARE
[2024-03-30 10:25] VITALS: BP 129/81; PULSE 88; TEMP 98.3
== END 2024-03-30 12:00 | disposition home or self-care (01) | DRG 785 ==
LOC: FBPOP 05:47 → 4FBP 06:06
PROVIDERS: ADMIT Obstetrics & Gynecology; ATTEND Obstetrics & Gynecology
PROC: 0UB70ZZ Excision of Bilateral Fallopian Tubes, Open Approach (ICD-10-PCS; 2024-03-28)
PROC: 10D00Z1 Extraction of Products of Conception, Low, Open Approach (ICD-10-PCS; principal; 2024-03-28 07:45)
DX: O34.211 Maternal care for low transverse scar from previous cesarean delivery (principal); O24.92 Unspecified diabetes mellitus in childbirth; O99.344 Other mental disorders complicating childbirth; F32.A Depression, unspecified; O99.62 Diseases of the digestive system complicating childbirth; K58.9 Irritable bowel syndrome, unspecified; Z30.2 Encounter for sterilization; Z37.0 Single live birth; Z3A.38 38 weeks gestation of pregnancy; Z79.4 Long term (current) use of insulin; Z82.49 Family history of ischemic heart disease and other diseases of the circulatory system; Z86.32 Personal history of gestational diabetes; Z90.49 Acquired absence of other specified parts of digestive tract; Z87.891 Personal history of nicotine dependence; O99.73 Diseases of the skin and subcutaneous tissue complicating the puerperium; L29.9 Pruritus, unspecified
CPT/HCPCS: 59025; 84112; 85025; 86850; 86900; 86901; 88302; 99213

== ENCOUNTER 2024-04-11 10:46 | Outpatient (CLI) | payer BC, OTHER ==
[2024-04-11 11:54] LABS: Appearance,Urine Clear (Clear); Bilirubin,Urine Negative (Negative); Blood,Urine Negative (Negative); Color,Urine Light Yellow; Glucose,Urine (UA) Negative (Negative); Ketones,Urine Negative (Negative); Leukocyte Esterase,Urine Negative (Negative); Nitrite,Urine Negative (Negative); Protein,Urine Trace (Negative); Specific Gravity,Urine 1.026 (1.001-1.035); Urobilinogen,Urine <2.0 mg/dL (<2.0)
[2024-04-11 12:29] LABS: Creatinine,Urine Random 146.7 mg/dL; Protein/Creatinine Ratio,Urine 0.075
[2024-04-11] MEDS: LABETALOL 200 MG TAB PO STA (12:52)
[2024-04-11 12:56] LABS: Anisocytosis Slight; Basophils # (A) 0.1 k/uL (0-0.2); Basophils % (A) 1 %; Eosinophils # (A) 0.4 k/uL (0-0.7); Eosinophils % (A) 6 %; HCT 34.8 % (34.0-46.0); HGB 10.6 gm/dL (11.4-16.0); Hypochromasia Marked; Lymphocytes % (A) 29 %; MCH 24.6 pg (25.0-35.0); MCHC 30.6 g/dL (31.0-37.0); MCV 80.3 fL (80.0-100.0); Mean Platelet Volume 7.7; Microcytosis Slight; Monocytes # (A) 0.3 k/uL (0-1.0); Monocytes % (A) 5 %; Neutrophils % (A) 57 %; Platelet Count 289 k/uL (150-450); Poikilocytosis Slight; RBC 4.34 m/uL (3.80-5.40); RDW 17.1 % (11.5-15.5); WBC 7.1 k/uL (3.8-10.6)
[2024-04-11 13:12] LABS: Uric Acid 6.4 mg/dL (3.7-7.4)
[2024-04-11 14:31] VITALS: BP 171/108; PULSE 67; RESP 16
--- NOTE | 2024-04-12 09:09 | P.MSEPDOC ---
Presenting Problems - Arrival Data Date of Arrival on Unit: 04/11/24 Time of Arrival on Unit: 10:46 Mode of Transport: Ambulatory - Complaint OB-Reason for Admission/Chief Complaint: Elevated Blood Pressure Comment: pt 2 weeks . seen in office today and B/P elevated pt sent over from the office for PIH workup. serial B/P and U/A Medical History - Gestational Age Gestational Age by MICHELLE (wks/days): 38 Weeks and 6 Days Review of Systems - Review of Systems Constitutional: No problems Breast: No problems ENT: No problems Cardiovascular: No problems Respiratory: No problems Gastrointestinal: No problems Genitourinary: No problems Musculoskeletal: No problems Neurological: No problems Skin: No problems Vital Signs - Pulse Right Brachial Pulse Rate: 67 Pulse Assessment Method: Automatic Cuff - Respirations Respiratory Rate: 16 Oxygen Delivery Method: Room Air - Blood Pressure Right Arm Blood Pressure: 171/108 Blood Pressure Mean: 129 Blood Pressure Source: Automatic Cuff Physician Notification - Physician Notified Physician Notified Date: 04/11/24 Physician Notified Time: 13:33 Physician: DR TAMEZ New Order Received: Yes - Notification Comment Comment: SERIAL B/P178/87, 186/83, 172/82, 177/99 LABETOL [address] TAMEZ . LAB RESULTS BACK AND WNL U/A TRACE OF PROTEIN. PT SENT HOME WITH PRESCRIPTION [place] TWAS ESCRIBE PER DR ZAVALA AND PT TO F/U ON TUESDAY HER OFFICE WITH CALL HER WITH HER APPOINTMENT TIME Maternal Triage Index - Scheduled/Requesting Priority 5 Scheduled/Requesting Priority 5: Yes Criteria Met for Priority 5: PT SENT OVER FROM OFFICE 2 WEEKS .SEEN IN OFFICE TODAY WITH ELEVATEd B/P. PT SENT OVER FROM OFFICE WITH A ORDR FOR SERIAL B/P, LABS AND U/A Disposition - Disposition OB Disposition: Discharge to home Discharge Date: 04/11/24 Discharge Time: 13:47 I agree with the RN Medical Screening Exam: Yes Case reviewed; plan agreed upon as documented in EMR&OBIX.: Yes Diagnosis: GESTATIONAL HTN W/O SIGNIFICANT PROTEINURIA, THIRD TRIMESTER
== END 2024-04-11 13:47 | disposition home or self-care (01) ==
LOC: FBPOP 10:46
PROVIDERS: ATTEND Obstetrics & Gynecology
DX: O13.9 Gestational [pregnancy-induced] hypertension without significant proteinuria, unspecified trimester (principal); Z3A.38 38 weeks gestation of pregnancy; Z87.891 Personal history of nicotine dependence
CPT/HCPCS: 81003; 82570; 84156; 84450; 84460; 84550; 85025; 99215